=== PATIENT | female | born 1980 | race Native Hawaiian/Other Pacific Islander ===

== ENCOUNTER 2018-01-10 08:14 | Day surgery (SDC) | payer OTHER ==
[2018-01-10] MEDS ORDERED: Caffeine Citrated **INJ** 20 MG/ML IV ONE (09:46)
[2018-01-10 13:36] VITALS: BMI 21.9
--- NOTE | 2018-01-10 20:38 | VASCLAB ---
DATE: 01/10/2018 PROCEDURE: Tilt-table test. INDICATION: Syncope. FINANCIAL UNDERWRITER: Florida White M.D. DESCRIPTION OF PROCEDURE: The patient was brought to the laborer/key man and tilt-table test was performed at 30 degrees for 5 minutes and 60 degrees for 15 minutes. Heart rate and blood pressure response were monitored every 2 minutes. There was less than 10 mm gradual decline in blood pressure and less than 10 beats per minute increase in heart rate during the test. The patient was asymptomatic throughout the test. IMPRESSION: Asymptomatic tilt-table test. Appropriate blood pressure and heart rate response to tilt-table test. Florida White MD
--- NOTE | 2018-01-11 10:34 | CARD ---
APPROVED REPORT Date of service: 01/10/2018 Protocol: LEXISCAN Test Type: LEXISCAN STRESS Test Indications: SYNCOPE Target HR: 185 bpm Resting ECG: NSR Resting Heart Rate: 73 bpm Resting Blood Pressure: 122/80mmHg submaximum (85%): 157 bpm TEST SUMMARY PREINFSNHYPERV.00:[id number]/80.0. INFUSIONDOSE 100:[id number]/80.0. OTENWYAAE24:[id number]/80.0. PROCEDURE Pharmacologic stress testing was performed using 0.4mg per 5ml of regadenoson given intravenously over 7-10 seconds. POST EXERCISE Reason for Termination: Protocol Completed Target HR: No Max HR: 93 bpm 68% of Maximum Predicted HR: 185 bpm Exercise duration: 00:30 min:sec, 0 Stage Exercise capacity: 1.0METs Max Blood Pressure: 124/80mmHg Blood Pressure response to exercise: normal resting BP - appropriate response Heart Rate response to exercise: appropriate Chest Pain: No, none Angina index: 0 Arrhythmia: No, none ST Change: Yes, 1MM ST Depression horizontal in leads V4-V6 Deviation: 0 mm INTERPRETATION Stress EKG Conclusion: POSITIVE LEXISCAN STRESS TEST NORMAL BP RESPONSE TO LEXISCAN NUCLEAR STUDIES TO BE READ SEPARATELY EXAM: Myocardial Perfusion STRESS/REST Imaging Protocol The imaging protocol used to acquire images was Stress Tc-99m/rest Tc-99m 1 day Rest Spect myocardial perfusion imaging was performed in supine position 45 minutes following the injection of 29.0 mCi of Tc-99 Myoview. Gated Stress Spect was performed 45 minutes after intravenous 11.3 mCi Tc-99 Myoview injection. The images were gated to evaluate regional wall motion and calculate ventricular ejection fraction.Images were reconstructed using backfilter projection method in short horizontal and verticle long axis. Spect slices were generated. RESTING DATA EDV71.32cgHV1.00L/min ESV14.00mlMyocardial Aloq372.00g Av. Heart Rate71.00bpm EF80.00% STRESS DATA EDV68.90myIO4.50L/min ESV11.00mlMyocardial Yjzf193.00g EF84.00% Regional WT score at stress:0.00 Regional WM score at stress:0.00 Summed WT score at stress:2.00 Av. Heart Rate79.00bpmSummed WM score at stress:0.00 LV Perf. Quant 17 Seg. SSS0.00 17 Seg. SRS0.00 17 Seg. SDS0.00 Stress Defect Extent (% LAD)0.00Rest Defect Extent (% LAD)0.00Rev. Defect Extent (% LAD)0.00 Stress Defect Extent (% LCX)0.00Rest Defect Extent (% LCX)0.00Rev. Defect Extent (% LCX)0.00 Stress Defect Extent (% RCA)0.00Rest Defect Extent (% RCA)0.00Rev. Defect Extent (% RCA)0.00 Stress Defect Extent (% ISIDORO)0.00Rest Defect Extent (% ISIDORO)0.00Rev. Defect Extent (% ISIDORO)0.00 IMPRESSION Normal Myocardial Perfusion exercise stress study Left Ventricle LV Function:Left ventricle systolic function is normal. The Ejection Fraction is >70%. Regional Wall Motion:No regional wall motion abnormalities noted. Metabolism/Perfusion There are no defects. There are no perfusion/metabolism defects. Conclusion 1. There is no scan evidence of reversible ischemia noted. 2. Left ventricle systolic function is normal. 3. The Ejection Fraction is >70%.
== END 2018-01-10 13:30 | disposition home or self-care (01) ==
LOC: C.CATHLAB 08:14 → EDSTATUS 08:30 → C.CATHLAB 13:30
PROVIDERS: ATTEND Internal Medicine
DX: R07.9 Chest pain, unspecified (principal); R06.02 Shortness of breath; R42 Dizziness and giddiness
CPT/HCPCS: 78452; 93017; 93660; A9502; J0706; J2785